=== PATIENT | female | born 1985 | race Caucasian/White ===

== ENCOUNTER 2017-06-30 13:36 | Emergency (ER) | payer SELFPAY ==
[~2017-06-30] VITALS: Ht 162.6 cm; Wt 57.0 kg
[2017-06-30 13:42] VITALS: BP 0/0
== END 2017-06-30 18:30 | disposition left against medical advice (07) ==
LOC: ER 13:36
DX: Z53.21 Procedure and treatment not carried out due to patient leaving prior to being seen by health care provider (principal)